=== PATIENT | male | born 1960 | race Caucasian/White ===

== ENCOUNTER 2023-09-20 07:15 | Emergency (ER) | payer MEDICAID ==
[~2023-09-20] VITALS: Ht 188 cm; Wt 105.2 kg
[~2023-09-20 07:15] MED LIST: LAMI1TAB40 PO; LOPI1TAB2 PO
[2023-09-20] MEDS: sulfamethoxazole/trimethoprim DS (800/160mg) tablet PO ONE (08:14)
[2023-09-20 08:23] VITALS: PULSE 85
[2023-09-20] MEDS ORDERED: SULF1TAB49 PO (08:34)
[2023-09-20 08:41] VITALS: BP 139/94; RESP 12; TEMP 98.2; O2SAT 96
== END 2023-09-20 08:45 | disposition home or self-care (01) ==
LOC: ER 07:15
DX: L03.312 Cellulitis of back [any part except buttock and flank] (principal); F17.200 Nicotine dependence, unspecified, uncomplicated; F12.90 Cannabis use, unspecified, uncomplicated; Z88.7 Allergy status to serum and vaccine; Z88.8 Allergy status to other drugs, medicaments and biological substances; Z79.899 Other long term (current) drug therapy; Z79.2 Long term (current) use of antibiotics; Z98.890 Other specified postprocedural states
CPT/HCPCS: 99283; 99284

== ENCOUNTER 2023-12-19 13:53 | Emergency (ER) | payer MEDICAID ==
[~2023-12-19] VITALS: Ht 188 cm; Wt 109.4 kg
[~2023-12-19 13:53] MED LIST changes: +LOPI1TAB PO; -LOPI1TAB2 PO
[2023-12-19] MEDS ORDERED: CEPH500C2 PO (16:12)
[2023-12-19] MEDS: cephalexin 250mg capsule PO ONE (16:18)
[2023-12-19 16:24] VITALS: BP 167/103; PULSE 64; RESP 16; TEMP 97.9; O2SAT 95
[2023-12-20] MEDS ORDERED: CEPH-585 PO (09:54)
[2023-12-20] MEDS ORDERED: SULF1TAB49 PO (09:55)
== END 2023-12-19 16:33 | disposition home or self-care (01) ==
LOC: ER 13:54
DX: B20 Human immunodeficiency virus [HIV] disease (principal); L03.116 Cellulitis of left lower limb; F12.90 Cannabis use, unspecified, uncomplicated; Z88.7 Allergy status to serum and vaccine; Z88.8 Allergy status to other drugs, medicaments and biological substances; Z79.2 Long term (current) use of antibiotics; Z79.899 Other long term (current) drug therapy; Z72.89 Other problems related to lifestyle; Z86.73 Personal history of transient ischemic attack (TIA), and cerebral infarction without residual deficits
CPT/HCPCS: 99283

== ENCOUNTER 2024-06-26 13:10 | Emergency (ER) | payer MEDICAID ==
[~2024-06-26] VITALS: Ht 185.4 cm; Wt 106.2 kg
[2024-06-26] MEDS ORDERED: HYDR-3965 PO (15:33)
[2024-06-26] MEDS ORDERED: SULF1TAB49 PO (15:33)
[2024-06-26] MEDS: CefTRIAXone 1000mg IM Kit (w/lidocaine diluent) IM ONE (15:54)
[2024-06-26] MEDS: ketorolac trometh 30MG/ML vial 30 MG/ML VIAL IM ONE (15:55)
[2024-06-26 16:33] VITALS: BP 148/76; PULSE 88; RESP 18; TEMP 98.8; O2SAT 97
== END 2024-06-26 16:35 | disposition home or self-care (01) ==
LOC: ER 13:11
DX: L02.415 Cutaneous abscess of right lower limb (principal); F12.90 Cannabis use, unspecified, uncomplicated; Z88.7 Allergy status to serum and vaccine; Z90.89 Acquired absence of other organs
CPT/HCPCS: 96372; 99284; J0696; J1885